=== PATIENT | female | born 1985 | race Caucasian/White ===

== ENCOUNTER 2016-08-03 09:51 | Emergency (ER) | payer SELFPAY ==
--- NOTE | 2016-08-03 10:06 | Emergency Department Record ---
History of Present Illness - General Chief Complaint: Abdominal Pain Stated Complaint: ABDOMINAL PAIN Time Seen by Provider: 08/03/16 10:05 Source: Patient Mode of Arrival: Ambulatory Limitations: No limitations - History of Present Illness Initial Comments: The patient is here due to the acute onset of LLQ Pelvic pain at 6:30 this AM. The pain is sharp and stabbing. She denies any nausea, vomiting, diarrhea, fever , or vaginal bleeding or discharge. The patient states she has a long hx of similar issues with ruptured ovarian cysts and this feels exactly like one. MD Complaint: Abdominal pain Onset/Timin -: Hour(s) Location: LLQ Radiation: None Migration to: No migration Severity: Moderate Quality: Cramping, Sharp, Stabbing Improves With: Nothing Worsens With: Nothing Associated Symptoms: Denies other symptoms - Related Data Home Medications Medication Instructions Recorded Confirmed Last Taken Clindamycin HCl [Cleocin HCl] 1 tab PO Q6H 08/03/16 08/03/16 08/03/16 Previous Rx's Medication Instructions Recorded Acetaminophen with Codeine 1 - 2 tab PO Q6H #15 tab 08/03/16 [Tylenol #3] Allergies Allergy/AdvReac Type Severity Reaction Status Date / Time No Known Drug Allergies Allergy Verified 08/03/16 10:03 Travel Screening - Travel/Exposure Within Last 30 Days Have you traveled within the last 30 days?: No - Travel/Exposure Within Last Year Have you traveled outside the [place] in the last year?: No - Additonal Travel Details Have you been exposed to anyone with a communicable illness?: No - Travel Symptoms Symptom Screening: None Review of Systems Constitutional: Denies: Chills, Fever Eyes: Denies: Eye discharge ENT: Denies: Congestion Respiratory: Denies: Cough, Dyspnea Past Medical History - SOCIAL HISTORY Smoking Status: Current every day smoker Alcohol Use: Rare Drug Use: None - RESPIRATORY Hx Respiratory Disorders: No - CARDIOVASCULAR Hx Cardio Disorders: No - NEURO Hx Neuro Disorders: No - GI Hx GI Disorders: No - Hx Genitourinary Disorders: Yes Hx UTI: Yes (frequent) - ENDOCRINE Hx Endocrine Disorders: No - MUSCULOSKELETAL Hx Musculoskeletal Disorders: No - PSYCH Hx Psych Problems: No - HEMATOLOGY/ONCOLOGY Hx Hematology/Oncology Disorders: No Family Medical History Any Significant Family History?: No Physical Exam - General General Appearance: Alert, Oriented x3, Cooperative, No acute distress - Head Head exam: Atraumatic, Normocephalic, Normal inspection - Eye Eye exam: Normal appearance, PERRL - Neck Neck exam: Normal inspection, Full ROM. negative: Tenderness - Respiratory Respiratory exam: Normal lung sounds bilaterally. negative: Respiratory distress - Cardiovascular Cardiovascular Exam: Regular rate, Normal rhythm, Normal heart sounds - GI/Abdominal GI/Abdominal exam: Soft, Tenderness (There is mild to moderate Left lower abdominal pain to palpation.). negative: Guarding, Pulsatile mass, Rebound, Rigid - Extremities Extremities exam: Normal inspection, Full ROM, Normal capillary refill. negative: Tenderness Course Vital Signs 08/03/16 09:52 Temperature 98.4 F Pulse Rate 112 H Respiratory 20 Rate Pulse Ox 98 - Reevaluation(s) Reevaluation #1: The patient is doing better. She states the pain is much improved. 08/03/16 11:03 Reevaluation #2: The patient is doing very well at this time. She denies any pain or discomfort. I did recheck her abdomen and it is very soft and nontender in all 4 quads. She does have a F/U appointment with a [employer] doctor very soon. I also did discuss the US report which was WNL's but the patient's IUD does appear low lying in the uterus. She is to discuss this with the [employer] doctor. 08/03/16 13:39 Medical Decision Making - Data Complexity MDM Data: Labs Ordered and/or Reviewed, X-Ray Ordered and/or Reviewed - Lab Data Result diagrams: 08/03/16 10:27 08/03/16 10:27 - Radiology Data Radiology results: Report reviewed (US: Low lying IUD but no torsion, abscess or free fluid.) Disposition Disposition: Discharge Clinical Impression: Pelvic pain Disposition: Home, Self-Care Condition: (1) Good Instructions: Abdominal Pain (ED) Additional Instructions: Please take the Tylenol # 3 for pain. Please see the [employer] doctor when possible. Please return to the ER for any increased pain, fever, bleeding or vomiting. Prescriptions: Acetaminophen with Codeine [Tylenol #3] 1 - 2 tab PO Q6H #15 tab Forms: Patient Portal Access Time of Disposition: 13:42
[2016-08-03] MEDS ORDERED: ONDANSETRON HCL IV 4 MG/2 ML VIAL IV ONE (10:09)
[2016-08-03] MEDS ORDERED: 0.9 % SODIUM CHLORIDE 1,000 ML BAG IV ONE (10:09)
[2016-08-03] MEDS ORDERED: HYDROMORPHONE HCL 1 MG/ML CPJ IVP ONE ×2 (10:09→12:18)
[2016-08-03 10:30] LABS: BASO % 0.4 % (0-6); EOS % 1.1 % (0-6); GRAN % 80.3 % (47-80); HEMATOCRIT 47.2 % (35.0-47.0); HEMOGLOBIN 15.9 gm/dl (11.6-16.0); LYMPH % 11.8 % (16-45); MEAN CELL VOLUME 95.7 fl (81-97); MEAN CORPUSCULAR HEMOGLOBIN 32.3 pg (27-33); MEAN CORPUSCULAR HGB CONC 33.7 g/dl (32-36); MONO % 6.4 % (0-9); PLATELET COUNT 271 K/uL (130-400); RED BLOOD COUNT 4.93 M/uL (3.80-5.40); RED CELL DISTRIBUTION WIDTH 13.4 % (11.5-14.5); WHITE BLOOD COUNT W/O DIFF 9.4 K/uL (4.2-12.2)
[2016-08-03 10:34] LABS: URINE APPEARANCE CLEAR; URINE BILIRUBIN NEGATIVE (NEGATIVE); URINE BLOOD NEGATIVE (NEGATIVE); URINE COLOR YELLOW; URINE GLUCOSE (UA) NEGATIVE (NEGATIVE); URINE KETONE NEGATIVE (NEGATIVE); URINE LEUKOCYTE ESTERASE NEGATIVE (NEGATIVE); URINE NITRITE NEGATIVE (NEGATIVE); URINE PROTEIN NEGATIVE (NEGATIVE); URINE UROBILINOGEN 0.2 E.U./dL (0.20 - 1.00)
[2016-08-03 10:43] LABS: BLOOD UREA NITROGEN 16 mg/dL (7-17); CREATININE 0.6 mg/dL (0.52-1.04); EST GLOMERULAR FILTRATION RATE > 60 ml/min; GLUCOSE,RANDOM 101 mg/dL (70-110)
[2016-08-03] MEDS ORDERED: KETOROLAC 30 MG/ML VIAL IVP ONE (10:48)
--- NOTE | 2016-08-04 08:01 | ULTRASOUND REPORT ---
EXAM: ULTRASOUND PELVIC W TRANSVAG (NON-OB) HISTORY: OVARIAN CYST. TECHNIQUE: Transabdominal and transvaginal sonographic images of the pelvis. COMPARISON: Prior ultrasound of the pelvis from 06/09/15. FINDINGS: On transabdominal images, the uterus measures 8.1 x 4.5 x 5.9 cm. The endometrium measures 4.9 mm in thickness. The myometrium is homogenous. The ovaries are not well seen transabdominally. On transvaginal imaging, there is an IUD in place, which appears to be low-lying, in the region of the lower uterine segment and cervix. Similar findings were present previously. The myometrium is homogenous. The right ovary measures 1 x 1.3 x 1 cm. The left ovary measures 2 x 2.6 x 1.1 cm. The endometrium measures 4 mm. Doppler and spectral analysis with color-flow was utilized. Arterial and venous flow to both ovaries. No solid adnexal mass. Trace of free fluid, which may be physiologic. Nabothian cysts are present. The previously noted tiny cystic structure near the cornua of the uterus to the left of midline is not redemonstrated. IMPRESSION: 1. IUD IN A LOW-LYING POSITION, LIKELY WITHIN THE LOWER UTERINE SEGMENT OR CERVIX. 2. NABOTHIAN CYSTS. JOB NUMBER: [id number] [facility]
== END 2016-08-03 13:59 | disposition home or self-care (01) ==
LOC: ER 09:51
DX: R10.2 Pelvic and perineal pain (principal)
CPT/HCPCS: 99284 ×2; 96376; 96374; 96375; 85025; 80048; 81003; 81025; 76856; 76830; J1885; J2405; J1170; J7030

== ENCOUNTER 2016-10-07 14:35 | Emergency (ER) | payer MEDICAID ==
--- NOTE | 2016-10-07 15:05 | Emergency Department Record ---
History of Present Illness - General Chief complaint: Extremity Problem Stated complaint: INJURY TO RT HAND Time Seen by Provider: 10/07/16 14:53 Source: Patient Mode of Arrival: Ambulatory Limitations: No limitations - History of Present Illness Initial comments: 31 yo female presents with hand pain after punching a wall a couple days ago. She is right handed. She hurts over the lateral right hand. No cuts or abrasions. No numbness or tingling. Her job is in care of elderly people. MD Complaint: Extremity pain, Joint pain Onset/Timin -: Days(s) Location: Right, Hand History of Same: No Severity scale (1-10): 9 Quality: Sharp, Stabbing Consistency: Constant Improves with: Nothing Worsens with: Nothing Associated Symptoms: Denies other symptoms - Related Data Previous Rx's Medication Instructions Recorded Acetaminop W/ Codeine 300/30Mg 1 tab PO Q6H #20 tab 10/07/16 [Tylenol #3] Allergies Allergy/AdvReac Type Severity Reaction Status Date / Time No Known Drug Allergies Allergy Verified 10/07/16 14:39 Travel Screening - Travel/Exposure Within Last 30 Days Have you traveled within the last 30 days?: No - Travel/Exposure Within Last Year Have you traveled outside the [place] in the last year?: No - Additonal Travel Details Have you been exposed to anyone with a communicable illness?: No - Travel Symptoms Symptom Screening: None Review of Systems Constitutional: Denies: Chills, Fever, Malaise Eyes: Denies: Eye discharge ENT: Denies: Congestion, Throat pain Respiratory: Denies: Cough Cardiovascular: Denies: Chest pain, Syncope Endocrine: Denies: Fatigue Gastrointestinal: Denies: Abdominal pain, Diarrhea, Nausea, Vomiting Genitourinary: Denies: Dysuria, Urgency Musculoskeletal: Reports: As per HPI, Arthralgia Skin: Reports: As per HPI, Bruising Neurological: Denies: Headache Psychiatric: Denies: Anxiety Hematological/Lymphatic: Denies: Blood Clots, Easy bleeding, Easy bruising, Swollen glands Past Medical History - SOCIAL HISTORY Smoking Status: Current every day smoker Alcohol Use: Rare Drug Use: None - RESPIRATORY Hx Respiratory Disorders: No - CARDIOVASCULAR Hx Cardio Disorders: No - NEURO Hx Neuro Disorders: No - GI Hx GI Disorders: No - Hx Genitourinary Disorders: Yes Hx UTI: Yes (frequent) - ENDOCRINE Hx Endocrine Disorders: No - MUSCULOSKELETAL Hx Musculoskeletal Disorders: No - PSYCH Hx Psych Problems: No - HEMATOLOGY/ONCOLOGY Hx Hematology/Oncology Disorders: No Family Medical History Any Significant Family History?: No Physical Exam - General General Appearance: Alert, Oriented x3, Cooperative, No acute distress - Head Head exam: Atraumatic, Normocephalic, Normal inspection - Eye Eye exam: Normal appearance - ENT ENT exam: Normal exam Ear exam: Normal external inspection Nasal Exam: Normal inspection Mouth exam: Normal external inspection - Neck Neck exam: Normal inspection - Cardiovascular Peripheral Pulses: 2+: Radial (R) - Rectal Rectal exam: Deferred - exam: Deferred - Extremities Extremities exam: Joint swelling, Normal capillary refill, Tenderness. negative : Normal inspection, Full ROM Image of Hand: 1 - bruising, swelling, and tenderness, intact skin 2 - bruising, inteact skin, intact sensation distal to all feingers. - Neurological Neurological exam: Alert - Psychiatric Psychiatric exam: Normal affect, Normal mood - Skin Skin exam: negative: Cyanosis, Mottled, Normal color (bruising) Course Vital Signs 10/07/16 14:43 Temperature 99.1 F Pulse Rate 85 Respiratory 18 Rate Blood Pressure 140/90 Pulse Ox 97 - Reevaluation(s) Reevaluation #1: The XR was read os non displaced, comminuted, intra articular fracture at the base of the 5th MC She will be placed in an ulnar gutter splint 10/07/16 15:26 Reevaluation #2: She was given a copy of the XR for follow up 10/07/16 15:38 Disposition Disposition: Discharge Clinical Impression: Closed fracture of 5th metacarpal Qualifiers: Encounter type: initial encounter Metacarpal location: base Fracture alignment : nondisplaced Laterality: right Qualified Code(s): S62.346A - Nondisplaced fracture of base of fifth metacarpal bone, right hand, initial encounter for closed fracture Disposition: Home, Self-Care Condition: (1) Good Instructions: Boxer Fracture (ED) Additional Instructions: Call your family doctor for follow up first of the week NO USE OF the right hand for any reason Prescriptions: Acetaminop W/ Codeine 300/30Mg [Tylenol #3] 1 tab PO Q6H #20 tab Referrals: EMMA VIVEROS M.D. [MEDICAL DOCTOR] - Forms: Patient Portal Access Time of Disposition: 15:38 Quality - Quality Measures Quality Measures: N/A - Blood Pressure Screening View Details: Yes Blood Pressure Classification: Hypertensive Reading Systolic Measurement: 140 Diastolic Measurement: 90 Screening for High Blood Pressure: < Pre-Hypertensive BP, F/U Documented > [ G8950] Pre-Hypertensive Follow-up Interventions: Follow-up with rescreen every year.
[2016-10-07] MEDS ORDERED: IBUPROFEN 600 MG TABLET PO ONE (15:21)
--- NOTE | 2016-10-09 08:38 | RADIOLOGY REPORT ---
EXAM: RIGHT HAND HISTORY: RIGHT HAND PAIN AT THE FIFTH METACARPAL FROM PUNCHING A WALL TWO DAYS AGO. TECHNIQUE: Three views of the right hand were obtained. Comparison: None. FINDINGS: There is a comminuted intraarticular fracture at the base of the fifth metacarpal. There is minor impaction with no displacement of significant angulation. The remaining osseous structures appear intact. IMPRESSION: COMMINUTED INTRAARTICULAR FRACTURE AT THE BASE OF THE FIFTH METACARPAL WITH MINOR IMPACTION AND NO SIGNIFICANT DISPLACEMENT. [facility]OB [facility]BER: [id number] [facility]
== END 2016-10-07 15:47 | disposition home or self-care (01) ==
LOC: ER 14:35
DX: S62.346A Nondisplaced fracture of base of fifth metacarpal bone, right hand, initial encounter for closed fracture (principal); W22.8XXA Striking against or struck by other objects, initial encounter
CPT/HCPCS: 99283

== ENCOUNTER 2018-10-26 10:10 | Emergency (ER) | payer MEDICAID ==
[2018-10-26] MEDS ORDERED: KETOROLAC 60 MG/2 ML VIAL IM STA (10:32)
[2018-10-26] MEDS ORDERED: ORPHENADRINE CITRATE 60MG/2ML VIAL IM ONE (10:33)
--- NOTE | 2018-10-26 10:37 | Emergency Department Record ---
Anxiety - General Chief Complaint: Anxiety Stated Complaint: YESENIA/BACK PAIN Time Seen by Provider: 10/26/18 10:25 Source: Patient Mode of Arrival: Ambulatory - History of Present Illness Initial Comments: WAKE UP WITH RIGHT Upper back pain and right shoulder pain and about one hour ago she got anxious about the pain and started to hyperventilate and came to the ED. Earlier she had her 7 year old walk on her back to see if that would help and it didn't help. She states history of panic attacks. No chest pain and no abd pain and no vomiting or diarrhea. Patient denies and using mirana and lmp 3 weeks ago Onset/Timin -: Hour(s) Symptoms: Dry mouth, Extremity numbness/tingling, Muscle cramps Place: Home Previous History of Same: Yes Severity: Mild, Moderate Quality: Constant Provoking factors: None known Improves With: Nothing Worsens With: Thinking about event - Related Data Home Medications: Previous Rx's Medication Instructions Recorded Cyclobenzaprine HCl [Flexeril] 10 mg PO TID #20 tablet 10/26/18 Naproxen [Naprosyn] 500 mg PO BID #20 tablet 10/26/18 Allergies/Adverse Reactions: Allergies Allergy/AdvReac Type Severity Reaction Status Date / Time No Known Drug Allergies Allergy Verified 10/26/18 10:21 Travel Screening - Travel/Exposure Within Last 30 Days Have you traveled within the last 30 days?: No - Travel/Exposure Within Last Year Have you traveled outside the [place] in the last year?: No - Additonal Travel Details Have you been exposed to anyone with a communicable illness?: No - Travel Symptoms Symptom Screening: None Review of Systems Reviewed: No additional complaints except as noted below Constitutional: Reports: As per HPI. Denies: Chills, Fever, Malaise, Night sweats, Weakness, Weight change Eyes: Reports: As per HPI. Denies: Eye discharge, Eye pain, Photophobia, Vision change ENT: Reports: As per HPI. Denies: Congestion, Dental pain, Ear pain, Epistaxis, Hearing loss, Throat pain Respiratory: Reports: As per HPI. Denies: Cough, Dyspnea, Hemoptysis, Stridor, Wheezes Cardiovascular: Reports: As per HPI. Denies: Arrhythmia, Chest pain, Dyspnea on exertion, Edema, Murmurs, Orthopnea, Palpitations, Paroxysmal nocturnal dyspnea, Rheumatic Fever, Syncope Endocrine: Reports: As per HPI. Denies: Fatigue, Heat or cold intolerance, Polydipsia, Polyuria Gastrointestinal: Reports: As per HPI. Denies: Abdominal pain, Constipation, Diarrhea, Hematemesis, Hematochezia, Melena, Nausea, Vomiting Genitourinary: Reports: As per HPI. Denies: Abnormal menses, Discharge, Dyspareunia, Dysuria, Frequency, Hematuria, Incontinence, Retention, Urgency Musculoskeletal: Reports: As per HPI, Back pain. Denies: Arthralgia, Gout, Joint swelling, Myalgia, Neck pain Skin: Reports: As per HPI. Denies: Bruising, Change in color, Change in hair/nails, Lesions, Pruritus, Rash Neurological: Reports: As per HPI. Denies: Abnormal gait, Confusion, Headache, Numbness, Paresthesias, Seizure, Tingling, Tremors, Vertigo, Weakness Psychiatric: Reports: As per HPI. Denies: Anxiety, Auditory hallucinations, Depression, Homicidal thoughts, Suicidal thoughts, Visual hallucinations Hematological/Lymphatic: Reports: As per HPI. Denies: Anemia, Blood Clots, Easy bleeding, Easy bruising, Swollen glands Past Medical History - SOCIAL HISTORY Smoking Status: Current every day smoker Alcohol Use: Rare Drug Use: None - RESPIRATORY Hx Respiratory Disorders: No - CARDIOVASCULAR Hx Cardio Disorders: No - NEURO Hx Neuro Disorders: No - GI Hx GI Disorders: No - Hx Genitourinary Disorders: Yes Hx UTI: Yes (frequent) - ENDOCRINE Hx Endocrine Disorders: No - MUSCULOSKELETAL Hx Musculoskeletal Disorders: No - PSYCH Hx Psych Problems: Yes Hx Anxiety: Yes - HEMATOLOGY/ONCOLOGY Hx Hematology/Oncology Disorders: No Family Medical History Any Significant Family History?: Yes Physical Exam - General General Appearance: Alert, Oriented x3, Cooperative, No acute distress - Head Head exam: Normal inspection - Eye Eye exam: Normal appearance, PERRL Pupils: Normal accommodation - ENT ENT exam: Normal exam, Mucous membranes moist, Normal external ear exam, Normal orophraynx, TM's normal bilaterally Ear exam: Normal external inspection. negative: External canal tenderness Nasal Exam: Normal inspection. negative: Discharge, Sinus tenderness Mouth exam: Normal external inspection, Tongue normal Teeth exam: Normal inspection. negative: Dental caries Throat exam: Normal inspection. negative: Tonsillar erythema, Tonsillar exudate - Neck Neck exam: Normal inspection, Full ROM. negative: Tenderness - Respiratory Respiratory exam: Normal lung sounds bilaterally. negative: Respiratory distress - Cardiovascular Cardiovascular Exam: Regular rate, Normal rhythm, Normal heart sounds - GI/Abdominal GI/Abdominal exam: Soft, Normal bowel sounds. negative: Tenderness - Rectal Rectal exam: Deferred - exam: Deferred - Extremities Extremities exam: Normal inspection, Full ROM, Normal capillary refill. negative: Tenderness - Back Back exam: Reports: Normal inspection, Full ROM, Muscle spasm, Tenderness (pain posterior thoracic back area and the right shoulder and neck). Denies: Rash noted - Neurological Neurological exam: Alert, Normal gait, Oriented X3, Reflexes normal - Psychiatric Psychiatric exam: Normal affect, Normal mood - Skin Skin exam: Dry, Intact, Normal color, Warm Course Vital Signs 10/26/18 10:15 Temperature 97.5 F L Pulse Rate 92 H Respiratory 28 H Rate Blood Pressure 126/94 Pulse Ox 100 - Reevaluation(s) Reevaluation #1: patient denies cough or wheezing problems and chest xray findings are none specific 10/26/18 12:47 Medical Decision Making - Data Complexity MDM Data: X-Ray Ordered and/or Reviewed (chest xray neg for pneumo and signs of reactive airway disease) Disposition Clinical Impression: Thoracic myofascial strain Qualifiers: Encounter type: initial encounter Qualified Code(s): S29.019A - Strain of muscle and tendon of unspecified wall of thorax, initial encounter Disposition: Home, Self-Care Condition: (1) Good Instructions: Thoracic Back Strain (ED) Additional Instructions: follow up with family DR in one week Prescriptions: Cyclobenzaprine HCl [Flexeril] 10 mg PO TID #20 tablet Naproxen [Naprosyn] 500 mg PO BID #20 tablet Forms: Patient Portal Access Time of Disposition: 12:50 Quality - Quality Measures Quality Measures: N/A - Blood Pressure Screening Does Patient Have Any of the Following: No Blood Pressure Classification: Hypertensive Reading Systolic Measurement: 126 Diastolic Measurement: 94 Screening for High Blood Pressure: < Pre-Hypertensive BP, F/U Documented > [G8950] Pre-Hypertensive Follow-up Interventions: Referral to alternative/primary care provider.
--- NOTE | 2018-10-27 22:59 | RADIOLOGY REPORT ---
EXAM: CHEST 2 VIEWS HISTORY: SHORTNESS OF BREATH. TECHNIQUE: Frontal and lateral views of the chest. COMPARISON: 08/22/2017. FINDINGS: Frontal and lateral views of the chest show mild peribronchial thickening. No airspace disease. No pleural effusion or pneumothorax. Cardiomediastinal silhouette is within normal limits. Bony structures are unremarkable. IMPRESSION: THERE IS MILD PERIBRONCHIAL THICKENING, QUESTION WHETHER THE PATIENT HAS REACTIVE AIRWAY DISEASE OR CLINICAL SUSPICION FOR BRONCHITIS. NO EVIDENCE OF PNEUMONIA. [facility]: [id number] [facility]
== END 2018-10-26 12:56 | disposition home or self-care (01) ==
LOC: ER 10:10
DX: S29.019A Strain of muscle and tendon of unspecified wall of thorax, initial encounter (principal); M25.511 Pain in right shoulder; R06.00 Dyspnea, unspecified; X58.XXXA Exposure to other specified factors, initial encounter; Y92.009 Unspecified place in unspecified non-institutional (private) residence as the place of occurrence of the external cause; F17.210 Nicotine dependence, cigarettes, uncomplicated
CPT/HCPCS: 71046; 96372; 99284; J1885; J2360